=== PATIENT | female | born 1960 | race Caucasian/White ===

== ENCOUNTER 2018-11-29 07:57 | Day surgery (SDC) | payer MEDICARE, OTHER ==
[~2018-11-29] VITALS: Ht 160 cm; Wt 100.5 kg
[~2018-11-29 07:57] MED LIST: ABAT250V; ALBU90OI61 INH; ALLO100 PO; ASPI325 PO; Aldactone100 MG PO; Alprazolam0.25 MG PO; Aspir 8181 MG PO; FA-80.8 MG PO; FLUO10 PO; FOLTABS PO; FURO40 PO; Florastor250 MG PO; HEARTBURN RELI150 M1 PO; IBUP400 PO; LEVOXYL PO; LEVSOD88 PO; Lopressor 25 mg25 MG PO; METO25ER PO; NAPR220 PO; OXYC5 PO; PROC5 PO; PROM25 PO; Prozac20 MG PO; RISP1 PO; SPIRONOLACTONE PO; SUCR1 PO; TIROSINT100 MCG PO; TIZANIDINE HCL2 MG PO; TRAM50 PO; Toprol Xl25 MG PO; Ultram50 MG PO
--- NOTE | 2018-11-29 11:14 | NUR ---
11/29/18 1114 Farrah Chávez PT. VERBALIZES LEGS WITH CRAMPING. PT. MOVING AROUND IN BED RESTLESS. PT. VERBALIZES HAVING RESTLESS LEG & NEEDS TO MOVE AROUND ALL THE TIME. PT. ALSO C/O HIP & BACK ACHE. STATES "I HAVE TO SQUIRM ALL THE TIME. I HAVE TO KEEP KICKING MY LEGS." PT. DOES THIS AT HOME.
== END 2018-11-29 10:40 | disposition home or self-care (01) ==
LOC: ORSCSDS 07:57
PROVIDERS: Internal Medicine Gastroenterology
PROC: 0DB98ZX Excision of Duodenum, Via Natural or Artificial Opening Endoscopic, Diagnostic (ICD-10-PCS; principal; 2018-11-29 09:30)
PROC: 0DB68ZX Excision of Stomach, Via Natural or Artificial Opening Endoscopic, Diagnostic (ICD-10-PCS; principal; 2018-11-29 09:30)
PROC: 0DBE8ZX Excision of Large Intestine, Via Natural or Artificial Opening Endoscopic, Diagnostic (ICD-10-PCS; principal; 2018-11-29 09:30)
PROC: 0DBN8ZX Excision of Sigmoid Colon, Via Natural or Artificial Opening Endoscopic, Diagnostic (ICD-10-PCS; principal; 2018-11-29 09:30)
DX: R10.9 Unspecified abdominal pain (principal); K62.5 Hemorrhage of anus and rectum; K74.60 Unspecified cirrhosis of liver; R19.4 Change in bowel habit; K21.0 Gastro-esophageal reflux disease with esophagitis; K44.9 Diaphragmatic hernia without obstruction or gangrene; K64.8 Other hemorrhoids; K64.4 Residual hemorrhoidal skin tags; E03.9 Hypothyroidism, unspecified; I12.9 Hypertensive chronic kidney disease with stage 1 through stage 4 chronic kidney disease, or unspecified chronic kidney disease; N18.3 Chronic kidney disease, stage 3 (moderate); I25.10 Atherosclerotic heart disease of native coronary artery without angina pectoris; F31.9 Bipolar disorder, unspecified; Z79.899 Other long term (current) drug therapy
CPT/HCPCS: 88305; 88342; J0330; J0461; J2405; J2704; J7120

== ENCOUNTER 2019-03-11 14:49 | Emergency (ER) | payer MEDICARE, OTHER ==
[~2019-03-11] VITALS: Ht 160 cm; Wt 102.1 kg
[~2019-03-11 14:49] MED LIST changes: -LEVSOD88 PO; +Synthroid88 MCG PO
== END 2019-03-11 17:32 | disposition home or self-care (01) ==
LOC: ER 14:49
DX: M19.90 Unspecified osteoarthritis, unspecified site (principal); E66.9 Obesity, unspecified; Z68.39 Body mass index [BMI] 39.0-39.9, adult; Z60.9 Problem related to social environment, unspecified; Z88.1 Allergy status to other antibiotic agents; Z88.5 Allergy status to narcotic agent; Z79.899 Other long term (current) drug therapy; Z79.82 Long term (current) use of aspirin
CPT/HCPCS: 99283; A9270-GY

== ENCOUNTER 2023-02-06 05:12 | Emergency (ER) | payer MEDICARE, OTHER ==
[~2023-02-06] VITALS: Ht 160 cm; Wt 104.3 kg
[2023-02-06] MEDS ORDERED: ACET500 PO (05:17)
[2023-02-06 08:52] VITALS: BP 140/85
== END 2023-02-06 09:11 | disposition home or self-care (01) ==
LOC: ER 05:12
DX: M25.511 Pain in right shoulder (principal); G89.29 Other chronic pain; H60.91 Unspecified otitis externa, right ear; Z88.1 Allergy status to other antibiotic agents; Z88.5 Allergy status to narcotic agent; M10.9 Gout, unspecified; M19.011 Primary osteoarthritis, right shoulder
CPT/HCPCS: 73030; 93005; 93010; 96372; 99284-25; A9270; J1885

== ENCOUNTER → 2023-06-03 | Outpatient (CLI) | payer MEDICARE, OTHER ==
[~2023-06-03] MED LIST changes: +ACET500 PO
[2023-06-03 17:33] LABS: BASOPHILS ABSOLUTE AUTO 0.03 K/mm3 (0.00-0.23); BASOPHILS PERCENT AUTO 1 % (0-2); EOSINOPHILS ABSOLUTE AUTO 0.05 K/mm3 (0.00-0.68); EOSINOPHILS PERCENT AUTO 1 % (0-6); Hemoglobin 15.4 g/dL (11.5-16.0); IMMATURE GRAN ABSOLUTE AUTO 0.01 K/mm3 (0.00-0.10); IMMATURE GRAN PERCENT AUTO 0 % (0-1); LYMPHOCYTES ABSOLUTE AUTO 1.76 K/mm3 (0.84-5.20); LYMPHOCYTES PERCENT AUTO 27 % (21-46); MONOCYTES ABSOLUTE AUTO 0.32 K/mm3 (0.16-1.47); MONOCYTES PERCENT AUTO 5 % (4-13); Mean Corpuscular HGB 31.4 pg (26.0-34.0); Mean Corpuscular HGB Conc 34.2 g/dL (31.5-36.5); Mean Corpuscular Volume 92 fL (80-100); Mean Platelet Volume 11.1 fL (9.1-12.4); NEUTROPHILS ABSOLUTE AUTO 4.43 K/mm3 (1.96-9.15); NEUTROPHILS PERCENT AUTO 67 % (41-73); Platelet Count 116 K/mm3 (150-400); RDW Coefficient Variation 12.3 % (11.7-14.2); RDW Standard Deviation 41.2 fL (35.1-46.3)
[2023-06-03 17:47] LABS: C-REACTIVE PROTEIN, EXT RANGE 1.08 mg/dL (0.000-0.300)
[2023-06-03 17:55] LABS: Source, Urine Clean Catch
[2023-06-03 18:15] LABS: Albumin, Blood 4.3 g/dL (3.4-5.0); Albumin/Globulin Ratio 1.1 (0.8-1.8); Bilirubin, Total 0.6 mg/dL (0.1-1.0); Bun/Creatinine Ratio 12.6 (12.0-20.0); Calcium, Blood 10.2 mg/dL (8.5-10.1); Creatinine, Blood 1.03 mg/dL (0.40-1.00); Globulin, Blood 3.8 g/dL (2.2-4.0); Potassium, Blood 3.3 mmol/L (3.5-5.5); Thyroid Stimulating Hormone 7.37 uIU/mL (0.360-4.800); Total Protein, Blood 8.1 g/dL (6.4-8.2)
[2023-06-03 18:23] LABS: Appearance, Urine Hazy (Clear); Bilirubin, Urine Neg (Neg); Blood, Urine 2+ (Neg); Color, Urine Yellow (P-Yellow); Glucose Qualitative, Urine Neg (Neg); Ketones, Urine Neg (Neg); Leukocyte Esterase, Urine 1+ (Neg); Nitrite, Urine Neg (Neg); Protein, Urine 2+ (Neg); Urobilinogen, Urine NORM (Normal)
[2023-06-03 18:45] LABS: Bacteria Mod /hpf; Hyaline Casts 0-2 /lpf (0-2); Squamous Epithelial Cells Mod /hpf (Few)
== END ==
LOC: LAB SHORT 14:40
PROVIDERS: Student in an Organized Health Care Education/Training Program
DX: E03.9 Hypothyroidism, unspecified (principal); K52.9 Noninfective gastroenteritis and colitis, unspecified; E86.0 Dehydration
CPT/HCPCS: 80053; 81001; 84443; 85025; 85651; 86140; 87077; 87086; 87186

== ENCOUNTER 2024-08-06 17:12 | Emergency (ER) | payer MEDICARE, OTHER ==
[~2024-08-06] VITALS: Ht 160 cm; Wt 74.8 kg
[2024-08-06] MEDS ORDERED: Ondansetron HCl 2 MG / ML 2ML Vial IV ONE (17:45)
[2024-08-06 18:10] LABS: BASOPHILS ABSOLUTE AUTO 0.03 K/mm3 (0.00-0.23); BASOPHILS PERCENT AUTO 1 % (0-2); EOSINOPHILS ABSOLUTE AUTO 0.03 K/mm3 (0.00-0.68); EOSINOPHILS PERCENT AUTO 1 % (0-6); Hemoglobin 13.5 g/dL (11.5-16.0); IMMATURE GRAN ABSOLUTE AUTO 0.01 K/mm3 (0.00-0.10); IMMATURE GRAN PERCENT AUTO 0 % (0-1); LYMPHOCYTES ABSOLUTE AUTO 1.51 K/mm3 (0.84-5.20); LYMPHOCYTES PERCENT AUTO 24 % (21-46); MONOCYTES ABSOLUTE AUTO 0.29 K/mm3 (0.16-1.47); MONOCYTES PERCENT AUTO 5 % (4-13); Mean Corpuscular HGB Conc 34.6 g/dL (31.5-36.5); Mean Corpuscular Volume 90 fL (80-100); Mean Platelet Volume 10.3 fL (9.1-12.4); NEUTROPHILS ABSOLUTE AUTO 4.51 K/mm3 (1.96-9.15); NEUTROPHILS PERCENT AUTO 71 % (41-73); Platelet Count 94 K/mm3 (150-400); RDW Standard Deviation 43.2 fL (35.1-46.3); Red Blood Cell Count 4.35 M/mm3 (3.80-5.20); White Blood Cell Count 6.38 K/mm3 (4.00-11.30)
[2024-08-06 18:40] LABS: Albumin, Blood 4.2 g/dL (3.4-5.0); Albumin/Globulin Ratio 1.3 (0.8-1.8); Bilirubin, Total 0.6 mg/dL (0.1-1.0); Calcium, Blood 9.3 mg/dL (8.5-10.1); Creatinine, Blood 0.92 mg/dL (0.40-1.00); Globulin, Blood 3.2 g/dL (2.2-4.0); Magnesium, Blood 1.8 mg/dL (1.6-2.4); Potassium, Blood 3.4 mmol/L (3.5-5.5); Total Protein, Blood 7.4 g/dL (6.4-8.2)
[2024-08-06 19:03] LABS: International Normalized Ratio 1.08; Prothrombin Time Results 11.5 Sec (9.7-11.5)
[2024-08-06] MEDS ORDERED: ONDA4ODT MM (20:14)
[2024-08-06 20:30] VITALS: BP 164/88
== END 2024-08-06 20:30 | disposition home or self-care (01) ==
LOC: ER 17:12
PROVIDERS: Student in an Organized Health Care Education/Training Program
DX: R10.9 Unspecified abdominal pain (principal); G89.29 Other chronic pain; K52.9 Noninfective gastroenteritis and colitis, unspecified; K85.90 Acute pancreatitis without necrosis or infection, unspecified; K86.1 Other chronic pancreatitis; N20.0 Calculus of kidney; Z90.5 Acquired absence of kidney; Z88.0 Allergy status to penicillin; Z88.5 Allergy status to narcotic agent; Z79.899 Other long term (current) drug therapy
CPT/HCPCS: 74177; 80053; 83690; 83735; 85025; 85610; 85730; 86850; 86900; 86901; 96374-59; 99284-25; J2405; Q9967

== ENCOUNTER → 2024-11-16 | Outpatient (CLI) | payer MEDICARE, OTHER ==
[~2024-11-16] MED LIST changes: +ONDA4ODT MM
[2024-11-21 12:09] LABS: Stool Occult Bld Immuno 1 Positive (NEGATIVE)
[2024-11-25 12:33] LABS: PANCREATIC ELASTASE,FECAL <10 ug/g (>=100)
== END | disposition home or self-care (01) ==
LOC: LAB 03:00 → LAB SHORT 03:00
DX: K62.5 Hemorrhage of anus and rectum (principal); R10.84 Generalized abdominal pain
CPT/HCPCS: 82653; G0328

== ENCOUNTER 2025-04-14 16:28 | Observation (INO) | payer MEDICARE, OTHER ==
[~2025-04-14] VITALS: Ht 160 cm; Wt 73.3 kg
[2025-04-14] MEDS ORDERED: Ondansetron HCl 2 MG / ML 2ML Vial IV PRN ×2 (17:05→21:50)
[2025-04-14 17:22] LABS: BASOPHILS ABSOLUTE AUTO 0.04 K/mm3 (0.00-0.23); BASOPHILS PERCENT AUTO 1 % (0-2); EOSINOPHILS ABSOLUTE AUTO 0.09 K/mm3 (0.00-0.68); EOSINOPHILS PERCENT AUTO 2 % (0-6); Hematocrit 39.0 % (33.0-51.0); Hemoglobin 13.7 g/dL (11.5-16.0); IMMATURE GRAN ABSOLUTE AUTO 0.03 K/mm3 (0.00-0.10); IMMATURE GRAN PERCENT AUTO 1 % (0-1); LYMPHOCYTES ABSOLUTE AUTO 1.87 K/mm3 (0.84-5.20); LYMPHOCYTES PERCENT AUTO 30 % (21-46); MONOCYTES ABSOLUTE AUTO 0.34 K/mm3 (0.16-1.47); MONOCYTES PERCENT AUTO 6 % (4-13); Mean Corpuscular HGB Conc 35.1 g/dL (31.5-36.5); Mean Corpuscular Volume 86 fL (80-100); NEUTROPHILS ABSOLUTE AUTO 3.83 K/mm3 (1.96-9.15); NEUTROPHILS PERCENT AUTO 62 % (41-73); NRBC ABSOLUTE 0.00 K/mm3 (0.00-0.02); NRBC Auto 0.0 /100 WBC (0.0-0.2); Platelet Count 183 K/mm3 (150-400); RDW Coefficient Variation 12.9 % (11.7-14.2); RDW Standard Deviation 40.4 fL (35.1-46.3)
[2025-04-14 17:36] LABS: Alanine Aminotransfer (ALT/SGP 23.0 U/L (12-78); Albumin, Blood 3.9 g/dL (3.4-5.0); Albumin/Globulin Ratio 1.0 (0.8-1.8); Anion Gap 12.0 mmol/L (3-11); Aspartate Aminotrans (AST/SGOT 20.0 U/L (12-37); Bilirubin, Total 0.6 mg/dL (0.1-1.0); Blood Urea Nitrogen 13.0 mg/dL (8-24); CO2, Blood 26.0 mmol/L (21-32); Calcium, Blood 9.5 mg/dL (8.5-10.1); Chloride, Blood 104.0 mmol/L (98-108); Creatinine, Blood 0.92 mg/dL (0.40-1.00); Globulin, Blood 3.8 g/dL (2.2-4.0); Glucose, Blood 155.0 mg/dL (70-99); Potassium, Blood 3.7 mmol/L (3.5-5.5); Sodium, Blood 138.0 mmol/L (136-145); Total Protein, Blood 7.7 g/dL (6.4-8.2)
[2025-04-14] MEDS ORDERED: FentaNYL Citrate 50 MCG/ML 2 ML Injection IV PRN (19:00)
[2025-04-14] MEDS ORDERED: NS 1,000 ML IV SCH (21:00)
[2025-04-14] MEDS ORDERED: EUTHYROX88 MC1 PO (21:20)
[2025-04-14] MEDS ORDERED: CYCL10 PO (21:20)
[2025-04-14] MEDS ORDERED: ALLOPURINOL100 M1 PO (21:20)
[2025-04-14] MEDS ORDERED: CARVEDILOL3.125 MG PO (21:22)
[2025-04-14] MEDS ORDERED: RISPERIDONE110 PO (21:22)
[2025-04-14] MEDS ORDERED: ALBU90OI INH (21:22)
[2025-04-14] MEDS ORDERED: OMEP20ER PO (21:23)
[2025-04-14] MEDS ORDERED: OLMESARTAN MEDO20 MG PO (21:25)
[2025-04-14] MEDS ORDERED: HYDROmorphone HCl/Pf 1MG SYR IV PRN (21:45)
[2025-04-14] MEDS ORDERED: FLU VACC TS2025(65UP)/MF59C/PF 45 MCG/0.5 ML SYRINGE IM SCH (21:50)
[2025-04-14] MEDS ORDERED: Albuterol 2.5 MG/3 ML VIAL INH PRN (21:55)
[2025-04-14] MEDS ORDERED: CefTRIAXone Sodium 1,000 MG in NS 100 ML IV SCH (22:34)
[2025-04-14 22:58] VITALS: BP 175/89
[2025-04-15] VITALS (27 sets, daily range): BP systolic 133–190; BP diastolic 64–110
[2025-04-15] MEDS ORDERED: HydrALAZINE HCl 20 MG / ML 1ML Vial IV PRN ×2 (00:30→18:30)
[2025-04-15] MEDS ORDERED: HYDROmorphone HCl/Pf 1MG SYR IV PRN ×2 (01:25→14:05)
[2025-04-15 05:43] LABS: BASOPHILS ABSOLUTE AUTO 0.02 K/mm3 (0.00-0.23); BASOPHILS PERCENT AUTO 0 % (0-2); EOSINOPHILS ABSOLUTE AUTO 0.02 K/mm3 (0.00-0.68); EOSINOPHILS PERCENT AUTO 0 % (0-6); Hematocrit 37.1 % (33.0-51.0); Hemoglobin 12.7 g/dL (11.5-16.0); IMMATURE GRAN ABSOLUTE AUTO 0.01 K/mm3 (0.00-0.10); IMMATURE GRAN PERCENT AUTO 0 % (0-1); LYMPHOCYTES ABSOLUTE AUTO 1.08 K/mm3 (0.84-5.20); LYMPHOCYTES PERCENT AUTO 22 % (21-46); MONOCYTES ABSOLUTE AUTO 0.29 K/mm3 (0.16-1.47); MONOCYTES PERCENT AUTO 6 % (4-13); Mean Corpuscular HGB Conc 34.2 g/dL (31.5-36.5); Mean Corpuscular Volume 88 fL (80-100); NEUTROPHILS ABSOLUTE AUTO 3.55 K/mm3 (1.96-9.15); NEUTROPHILS PERCENT AUTO 72 % (41-73); NRBC ABSOLUTE 0.00 K/mm3 (0.00-0.02); NRBC Auto 0.0 /100 WBC (0.0-0.2); Platelet Count 124 K/mm3 (150-400); RDW Coefficient Variation 13.1 % (11.7-14.2); RDW Standard Deviation 41.9 fL (35.1-46.3)
[2025-04-15 06:11] LABS: Alanine Aminotransfer (ALT/SGP 19.0 U/L (12-78); Albumin, Blood 3.4 g/dL (3.4-5.0); Albumin/Globulin Ratio 1.0 (0.8-1.8); Anion Gap 9.0 mmol/L (3-11); Aspartate Aminotrans (AST/SGOT 18.0 U/L (12-37); Bilirubin, Total 0.6 mg/dL (0.1-1.0); Blood Urea Nitrogen 10.0 mg/dL (8-24); CO2, Blood 27.0 mmol/L (21-32); Calcium, Blood 8.7 mg/dL (8.5-10.1); Chloride, Blood 106.0 mmol/L (98-108); Creatinine, Blood 0.8 mg/dL (0.40-1.00); Globulin, Blood 3.3 g/dL (2.2-4.0); Glucose, Blood 110.0 mg/dL (70-99); Potassium, Blood 3.6 mmol/L (3.5-5.5); Sodium, Blood 138.0 mmol/L (136-145); Total Protein, Blood 6.7 g/dL (6.4-8.2)
--- NOTE | 2025-04-15 06:36 | NUR ---
PHARM TECH SUMMARY PT WAS A NEW ADMIT FROM THE ED TONIGHT. ADMITTED FOR ACUTE CHOLECYSTITIS. PT AAOX4 AND PLEASANT. STANDBY ASSIST WHEN OOB. PAIN WELL CONTROLLED WITH IV DILAUDID 1 MG. PT VERY HYPERTENSIVE IN ED AND AFTER ARRIVING TO THE FLOOR. EVEN AFTER BEING MEDICATED FOR PAIN PT BP STILL 190'S SYSTOLIC. RECEIVED ORDER FROM HOSPITALIST FOR PRN HYDRALAZINE WHICH IMPROVED SBP TO 140'S. NPO ARRIVING TO UNIT, IV FLUIDS RUNNING. WCTM.
[2025-04-15] MEDS ORDERED: Lactobacil 2-S.Thermo-Bifido 1 1 Cap PO SCH (09:00)
[2025-04-15 10:11] LABS: Prothrombin Time Results 12.7 Sec (9.7-11.5)
--- NOTE | 2025-04-15 11:30 | NUR ---
TO DAY SURGERY VIA WC
--- NOTE | 2025-04-15 11:49 | NUR ---
TO [facility] FOR PROCEDURE. History, Chart, Medications and Allergies reviewed before start of procedure. Lungs clear T/O to Auscultation. Patient confirms NPO status and agrees with scheduled surgery. Pre-Op teaching done. Pt verbalizes understanding.
[2025-04-15] MEDS ORDERED: Bupivacaine 0.5% W/EPI 1:200000 SDV 30 ML Vial ONE (12:00)
[2025-04-15] MEDS ORDERED: Rocuronium Bromide 10 MG/ML 5ML Injection IV ONE ×2 (12:06→13:39)
[2025-04-15] MEDS ORDERED: FentaNYL Citrate 50 MCG/ML 2 ML Injection ONE ×3 (12:06→14:32)
[2025-04-15] MEDS ORDERED: Midazolam HCl 1MG / ML 2ML Vial ONE (12:07)
[2025-04-15] MEDS ORDERED: Dexamethasone Sod Phos 10 MG/ML 1ML VIAL ONE (13:39)
[2025-04-15] MEDS ORDERED: Ondansetron HCl 2 MG / ML 2ML Vial ONE ×2 (13:39→14:24)
[2025-04-15] MEDS ORDERED: Phenylephrine HCl 100 MCG/ML-NS 10MLSYR (1MG/10ML) ONE (13:39)
[2025-04-15] MEDS ORDERED: Ketorolac Tromethamine 30mg Vial ONE (13:39)
[2025-04-15] MEDS ORDERED: Sugammadex Sodium 200 MG/2ML SDV (100 MG/ML) ONE (13:40)
[2025-04-15] MEDS ORDERED: FentaNYL Citrate 50 MCG/ML 5 ML Injection ONE (13:44)
[2025-04-15] MEDS ORDERED: Metoclopramide HCl 5MG / ML 2ML Vial ONE (14:38)
--- NOTE | 2025-04-15 15:15 | NUR ---
POST OP RETURN TO SURGICAL UNIT VIA GOURNEY, SCOOTED TO HOSPITAL BED. ALERT, ORIENTED, BUT HOLDING EMESIS BAG TO MOUTH. REPORTS EMESIS x 1 IN PACU. COOL WASHCLOTH OFFERED. LUNGS CLEAR. 2L NC. HRR. HTN NOTED. ABD SOFT w/ LAP SITES x 4 COVERED w/ WOUND GLUE. NO DRNG. ICE CHIPS GIVEN PER REQUEST.
[2025-04-15] MEDS ORDERED: HydrALAZINE HCl 20 MG / ML 1ML Vial IV ONE (18:25)
--- NOTE | 2025-04-15 19:24 | NUR ---
SHIFT SUMMARY HTN NOTED & DISCUSSED w/ MD. POST OP HAS BEEN UP & VOIDED. ONLY TAKEN SIPS BUT NO IVF DUE TO HTN. PAIN REASONABLY MANAGED.
[2025-04-16 00:02] VITALS: BP 145/79
[2025-04-16 04:01] VITALS: BP 137/86
[2025-04-16 07:32] VITALS: BP 147/83
--- NOTE | 2025-04-16 10:41 | NUR ---
DR RICHEY IN TO SEE PT.
--- NOTE | 2025-04-16 14:41 | NUR ---
DR CASTILLO IN TO SEE PT.
[2025-04-16 14:58] VITALS: BP 167/85
--- NOTE | 2025-04-16 18:26 | NUR ---
SUMMARY PT HAS BEEN NAUSEATED OFF AND ON T/O SHIFT. FELT OXY MADE NAUSEA WORSE. MEDICATED THIS EVENING W/TYLENOL FOR NETTLES PAIN. TOLERATING SMALL AMOUNTS OF SOLIDS AND TAKING FLUIDS. ABDOMEN SOFT BUT DISTENDED. DENIES PASSING FLATUS. AMBULATED IN [place] W/FWW AND SBA THIS AFTERNOON. VOIDING. CALL LIGHT IN REACH.
[2025-04-16 19:03] VITALS: BP 139/72
[2025-04-17 04:30] VITALS: BP 147/81
--- NOTE | 2025-04-17 04:34 | NUR ---
SHIFT SUMMARY RAJINDER WAS A/O X4 ON ASSESSMENT. PAIN WELL MANAGED. LAP SITES C/D/I. PT AMBULATING/ TOILETING APPROPRIATELY. DENIES SOB, CHEST PAIN, NAUSEA. PT PASSING FLATUS. NO ACUTE EVENTS TONIGHT. PT DID NOT SLEEP MUCH.
[2025-04-17 08:07] VITALS: BP 140/82
[2025-04-17 10:28] VITALS: BP 159/88
[2025-04-17] MEDS ORDERED: TRAM50 PO (10:42)
--- NOTE | 2025-04-17 11:24 | NUR ---
DISCHARGED PT EAGER TO DC, HARD TO HAVE PT FOCUS ON DC INSTRUCTIONS. PT DENIED ANY QUESTIONS. PROVIDED DC PAPERWORK. PT SIGNED DC PAPERWORK. STATED NOTIFIED CARE AGENCY OF DC. LEFT UNIT IN WC W/POSSESSIONS AND DC PAPERWORK IN HAND TO RIDE WAITING OUTSIDE.
== END 2025-04-17 10:48 | disposition home or self-care (01) ==
LOC: ER 16:28 → SURS 16:29
PROVIDERS: Student in an Organized Health Care Education/Training Program; Surgery; ADMIT Internal Medicine
PROC: BF12YZZ Fluoroscopy of Gallbladder using Other Contrast (ICD-10-PCS; principal; 2025-04-15 12:30)
PROC: 0FT44ZZ Resection of Gallbladder, Percutaneous Endoscopic Approach (ICD-10-PCS; principal; 2025-04-15 12:30)
DX: K80.12 Calculus of gallbladder with acute and chronic cholecystitis without obstruction (principal); K74.60 Unspecified cirrhosis of liver; I10 Essential (primary) hypertension; E03.9 Hypothyroidism, unspecified; E78.5 Hyperlipidemia, unspecified; G47.33 Obstructive sleep apnea (adult) (pediatric); D69.6 Thrombocytopenia, unspecified; I25.2 Old myocardial infarction; F31.9 Bipolar disorder, unspecified; M10.9 Gout, unspecified; Z88.0 Allergy status to penicillin; Z79.890 Hormone replacement therapy; Z79.899 Other long term (current) drug therapy
CPT/HCPCS: 36415; 71046; 74177; 76705; 80053; 83690; 84484; 85025; 85610; 88304; 93005; 93010; 96361; 96365; 96374; 96375; 96376; 99285-25; A9270; G0378; J0360; J0696; J1100; J1171; J1885; J2250; J2371; J2405; J2704; J2765; J3010; J7030; J7120; Q9967